=== PATIENT | female | born 1955 | race Caucasian/White ===

== ENCOUNTER 2023-05-16 13:43 | Outpatient (RCR) | payer MEDICARE, SELFPAY ==
--- NOTE | 2023-01-17 14:46 | ONC.NURNOTE ---
llabs viewed by Dr. Meeks and called to pt. Pt aware to continue Hydrea as she has been taking it. 500mg sun thru sat. 1000mg sundays.
--- NOTE | 2023-09-03 14:46 | ONC.NURNOTE ---
Lab results reviewed as stable in regards to hydrea dosing missing CMP- BMP done instead, and no [facility] radio news writer noted with patient- and informed that will sending a copy of lab tests needed to her as [place] [facility] [place] expressed frustration with communication issues between the 2 facilities patient saw lab results [place] [facility] [place] and confirmed current dosing 500 mg 6 d/wk and 1000 mg 1 d/wk reports no concerns with hydrea
--- NOTE | 2023-09-13 13:49 | ONC.NURNOTE ---
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
--- NOTE | 2023-09-27 12:01 | ONC.NURNOTE ---
lab redraw [place] [facility] [place]LDH noted to be stable with the patients baseline
== END 2023-11-12 23:59 | disposition home or self-care (01) ==
LOC: CCIC 13:43
PROVIDERS: PCP Surgery; Referring Provider Surgery; Visit Provider Internal Medicine Hematology & Oncology
DX: D47.3 Essential (hemorrhagic) thrombocythemia (principal); R53.83 Other fatigue; E03.9 Hypothyroidism, unspecified; E61.1 Iron deficiency
CPT/HCPCS: 80053; 83615; 85025; 99212; 99213; 99214

== ENCOUNTER 2024-07-15 00:41 | Emergency (ER) | payer MEDICARE, SELFPAY ==
--- OUTSIDE RECORDS SUMMARY | 2024-07-15 00:43 | XMS_ITS | Clinical Summary ---
Author Organization [facility] Address [place], [place] [address] Care Team Providers Care Defence Intelligence Analyst Name Role Phone Jessee Mcadams MD Primary Care Provider [phone] Beatrice Jamison MD Unavailable [phone] Shoshana Solorio GLUER Unavailable Allergies No known active allergies Medications aspirin 81 mg tablet Take 1 tablet by mouth once daily with a meal. 0 08/21/19 10 Active levothyroxine (SYNTHROID) 88 mcg tabletIndications :Hypothyroidism (acquired) Take 1 Tablet (88 mcg) by mouth before breakfast. 100 Tablet 3 08/28/19 24 Active atorvastatin (LIPITOR) 20 mg tabletIndications :Hyperlipidemia, unspecified hyperlipidemia type Take 1 Tablet (20 mg) by mouth at bedtime. 100 Tablet 3 08/28/19 24 Active hydroxyurea (HYDREA) 500 mg capsuleIndication s:Essential thrombocytosis (HC) Take 1 Capsule (500 mg) by mouth once daily. 2 tabs on Sunday and 1 tab per day the rest of the week (Sunday - Sunday) 32 Capsule 11 12/25/19 24 Active tretinoin (RETIN-A) 0.025 % creamIndications: Solar elastosis,Actinic keratosis APPLY TOPICALLY TO THE AFFECTED AREA AT BEDTIME 45 g 04/02/20 24 Active estriol, E3, micronized 100% bulk powderIndications :Atrophic vaginitis 3 mg/g cream. Apply 1 g vaginally twice weekly. 30 g 11 06/17/19 25 Active Estriol Micronized 100 % powdIndications:A trophic vaginitis 3 mg/g cream. Apply 1 g vaginally twice weekly. 30 g 11 04/03/20 23 025 Discontinued Hospital, Clinic, or Other Facility Administered Medication Ordered Dose Route Frequency Start Date End Date Status denosumab (PROLIA) injection 60 mgIndications:Osteoporosis , unspecified osteoporosis type, unspecified pathological fracture presence 60 mg SubQ Q 26 WEEKS 03/13/2024 03/12/2025 Active Active Problems Problem Noted Date Diagnosed Date Hypothyroidism (acquired) 07/04/2022 Nonrheumatic tricuspid valve regurgitation 07/08 Overview (07/04/2021): Mild to moderate; Identified on echo 06/2020 - recheck 2022 Skin cancer 11/04/2019 Cancer Staging:Clinical: Unsigned Pathologic: Unsigned Overview (07/04/2021): 10/30/19, left bridge of nose. nBCC; [facility] Other osteoporosis without current pathological fracture 12/06/2018 Overview (12/06/2018): T score -2.5; Elected to wait on bisphosphonate 11/2018 Diverticulosis of large intestine without hemorr kamlesh 07/13/2015 Overview (07/13/2015): Colonoscopy 07/2015 moderate -severe diverticulosis, chose other colon cancer screening modality in 10 years Adhesive capsulitis of shoulder 03/24/2010 Essential thrombocytosis 03/03/2008 Chronic kidney disease, stage III (moderate) 05/2008 Vascular disorders of kidney Resolved Problems Problem Noted Date Diagnosed Date Resolved Date Osteopenia 02/08/2009 12/06/2018 Other abnormal blood chemistry 03/20/2008 02/08/2009 Iron deficiency anemia, unspecified 12/23/2007 03/03/2008 Unspecified diseases of bloo d and blood-forming organs 12/19/2007 03/09/2011 Other disorders of iron metabolism 11/24/2007 02/08/2009 Overview (03/11/2010): Inactive ICD-9 code replaced with correct active ICD-9. Display name retained. Adjustment disorder with mix ed anxiety and depressed mood 06/20/2007 03/10/2011 Unspecified essential hypertension 12/27/2012 Unspecified disorder of kidney and ureter 03/03/2008 Encounters Date Type Department Care Team Description 07/08/2024 Telephone [facility] [address] [facility] [address] Shoshana Solorio, GLUER Appointment 06/30/2024 11:15 AM COMPLIANCE PROFESSIONAL Office Visit [facility] [address] [facility] [place] [phone] Shoshana Solorio, GLUER Follow Up (Essential thrombocytosis ) 06/30/2024 Travel 06/25/2024 10:15 AM COMPLIANCE PROFESSIONAL Orders Only [facility] [place] [address] [place] [address] [place] [facility] 06/25/2024 Travel 06/24/2024 Orders Only [facility] [address] [facility] [phone] Beatrice Jamison MD <No scans attached> 06/20/2024 Travel 06/12/2024 Refill [facility] [address] [facility] [address] Jessee Mcadams MD Refill Request (estriol) 05/05/2024 2:00 PM COMPLIANCE PROFESSIONAL Orders Only [facility] [place] [address] [address] [place], [place] [facility] 05/05/2024 Orders Only [facility] Scanner 1 scan: (1-Ord) [facility], FECAL LEUKOCYTE STAIN RESULT, 05/05/2024 05/02/2024 11:30 AM COMPLIANCE PROFESSIONAL Orders Only [facility] [place] [address] [address] [place], [place] [facility] 05/02/2024 Telephone [facility] [place] [address] [address] [address] Olivia Cross, DO Follow Up 05/01/2024 12:45 PM COMPLIANCE PROFESSIONAL Orders Only [facility] [place] [address] [address] Lab, [place] [facility] 05/01/2024 Orders Only [facility] Scanner 1 scan: (1-Ord) [facility], FECAL LEUKOCYTE STAIN, 05/01/2024 05/01/2024 Travel 04/30/2024 3:25 PM COMPLIANCE PROFESSIONAL Office Visit [facility] [address] [place] [address] Olivia Cross Daisy, DO Diarrhea (x16 days - multiple episodes per day ) 04/29/2024 Travel 04/26/2024 2:55 PM COMPLIANCE PROFESSIONAL E-Visit [facility] [address] [place] [address] Jessee Mcadams MD eVisit for Diarrhea 04/26/2024 Nurse Triage [facility] [address] [place] [address] Jessee Mcadams MD Diarrhea from Last 3 Months Immunizations Name Administration Dates Next Due AMB INFLUENZA, IIV4 (AGE=>6M OS) MDV (Flu Clinic Only) 03/11/2018 AMB Influenza, IIV3 (Age >=3 years)(Flu Clinic Only) 03/19/2009 AMB Influenza, IIV4 PF (=>6 mos Flulaval,Fluzone Fluarix)(Flu Clinic Only) 04/07/2017,04/07/2016,03/26/2015 Hepatitis A (Adult) 09/30/2009,02/08/2009 Influenza A (H1N1), Inactivated 06/18/2009 Influenza A (H1N1), Inactiva gm (Age >=3 Years) 06/18/2009 Influenza, High-dose Quadriv alent Inactivated 05/24/2022 Influenza, IIV3 (Age 6-35 mos) 03/10/2011,2010 Influenza, IIV3 (Age >=3 years) 03/27/20 13,03/10/2011,07/22/2010,2008,03/13/2008,06/10/2007,07/26/2006 Influenza, IIV4 04/07/2016,03/26/2015,03/18/2014 Influenza, IIV4 (=>6mos) MDV 03/12/2018 Influenza, Inactivated AIIV4 (Age 65+ Years) Preserv Free 02/28/2023,04/13/2021,03/11/2020 Influenza, Inactivated IIV3 (Age 65+ Years) Preserv Free 03/12/2019 Pneumococcal Conj 20-valent (Prevnar 20) 07/04/2022 Pneumococcal Poly,23-Valent (Pneumovax) 07/04/2019 Td (Age >=7 Years) 07/04/2019,10/20/1999 Tdap 08/20/2009 Zoster (Shingrix-RZV, recombinant) 11/14/2019, Zoster (Zostavax-ZVL, live) 03/18/2014 Family History Medical History Relation Name Comments Heart Disease Father [place] at age 80; then Cancer-breast Maternal Aunt did well, pos t menopausal Good Health Mother born 1921 Cancer Other no ovarian canc er Cancer-breast Sister age 60--resect ed Cancer-ovarian No Family History Relation Name Status Comments Father Maternal Aunt Mother Other Sister Social History Tobacco Use Types Packs/Day Years Used Date Smoking Tobacco: Former Cigarettes 1 5 0 06/11/1991 - 06/11/1996 Smokeless Tobacco: Never Tobacco Cessation:Counseling Given: Not Answered Alcohol Use Standard Drinks/Week Comments Yes 2 (1 standard drink = 0.6 oz pur e alcohol) PHQ-2 Answer Date Recorded PHQ-2 TOTAL SCORE 2 08/28/2023 Social Connections Answer Date Recorded Do you often feel lonely or isolated from those around you? 0 04/29/2024 Alcohol Use Answer Date Recorded How often do you have a drink containing alcohol ? 4 01/12/2022 How many drinks containing a lcohol do you have on a typical day when you are drinking? 0 01/12/2022 How often do you have five or more drinks on one occasion? 0 01/12/2022 Financial Resource Strain Answer Date R ecorded Difficulty of Paying Living Expenses 3 04/29/2024 Difficulty of Paying Living Expenses Not on file 04/29/2024 Food Insecurity Answer Date Recorded Do you worry your food will run out before you are able to buy more? 1 04/29/2024 Transportation Needs Answer Date Record ed Does lack of transportation keep you from medica l appointments? 1 04/29/2024 Does lack of transportation keep you from work, meetings or getting things that you need? 1 04/29/2024 Housing Stability Answer Date Recorded What is your housing situation today? 1 04/29/2024 Utilities Answer Date Recorded Do you have trouble paying f or utilities (for example, heat, electricity, water, phone)? 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 Not on file Not on file Obstetrics History Para Term AB IAB SAB Ectopic Multiple Livin g Live Births 1 06 11 Date Outcome GA Total Labor Labor/2nd/3rd Weight Sex Type Anes PTL Daisy A1 A5 Name Clin Term Last Filed Vital Signs Vital Sign Reading Time Taken Comments Blood Pressure 136/88 06/30/2024 11:15 AM COMPLIANCE PROFESSIONAL ma nual Pulse 65 06/30/2024 11:09 AM COMPLIANCE PROFESSIONAL Temperature 36.3 C (97.4 F) 06/30/2024 11:09 AM COMPLIANCE PROFESSIONAL Respiratory Rate 18 06/30/2024 11:09 AM COMPLIANCE PROFESSIONAL Oxygen Saturation 98% 06/30/2024 11:09 AM COMPLIANCE PROFESSIONAL Inhaled Oxygen Concentration - - Weight 62.8 kg (138 lb 6.4 oz) 06/30/2024 11:09 AM COMPLIANCE PROFESSIONAL Height 164 cm (5' 4.57) 08/28/2023 2:10 PM CDT Body Mass Index 23.34 08/28/2023 2:10 PM CDT Plan of Treatment Upcoming Encounters Date Type Department Care Team (Late st Contact Info) Description 07/15/2024 8:45 AM COMPLIANCE PROFESSIONAL Office Visit [facility] [address] [place] [address] Justus Estrada MD [address] [place] [address] 08/29/2024 1:10 PM CDT Office Visit [facility] [address] [place] [address] Jessee Mcadams MD [address] [place] [address] Health Maintenance Due Date Last Done Comments RSV vaccine for adults or (1 - Risk 60-74 years 1-dose series) 2013 Influenza for age 65+ 02/10/2024 02/28/2023 , 05/24/2022, 04/13/2021, Additional history exists COVID-19 vaccine series (2023- season) 2024 05/12/2024, 07/02/2023, 01/11/2023, Additional history exists Mammogram for age 45-75 08/08/2024 08/09/19, 08/07/2022, 07/20/2021, Additional history exists BMI (ht and wt on same day) for age 18+ 08/27/2024 08/28/2023, 07/04/2022, 07/04/2021, Additional history exists Depression screening for age 12+ 08/27/2024 08/28/2023, 07/04/2022, 07/04/2021, Additional history exists Medicare Wellness for age 65+ 08/28/2024, 07/04/2022, 07/04/2021 Colonoscopy through age 75 07/13/202507/13, 07/13/2015, 01/09/2005 Lipids for age 45-75 08/27/2028 08/28/2023, 07/04/2022, 08/18/2020, Additional history exists Tetanus booster 07/04/2029 07/04/2019, 08/09, 10/20/1999 Tdap Completed 08/20/2009 Hepatitis C screening for ag e 18-79 Completed 05/21/2015 Zoster (shingles) series for age 50+ Completed 11/14/2019, 07/04/2019, 03/18/2014 Pneumococcal series for age 50+ Completed , 07/04/2019 DEXA/DXA scan for age 65+ Completed 2022, 07/19/2020, 11/19/2018, Additional history exists Procedures Procedure Name Priority Date/Time Associated Diagnosis Comments COMP METABOLIC PANEL Routine 06/25/2024 10:13 AM COMPLIANCE PROFESSIONAL Essential thrombocytosis (HC) CBC WITH AUTO DIFFERENTIAL Routine 06/25/2024 10:13 AM COMPLIANCE PROFESSIONAL Essential thrombocytosis (HC) SCAN-PATHOLOGY REPORT 05/05/2024 12:00 AM COMPLIANCE PROFESSIONAL OVA + PARASITE EXAM Routine 05/02/2024 7 :30 AM COMPLIANCE PROFESSIONAL Acute diarrhea OVA + PARASITE EXAM Routine 05/01/2024 1 1:34 AM COMPLIANCE PROFESSIONAL Acute diarrhea STOOL PATHOGEN MULTIPLEX PCR PANEL Routine 05/01/2024 11:22 AM COMPLIANCE PROFESSIONAL Acute diarrhea CLOSTRIDIOIDES DIFFICILE TOXIN PCR Routine 05/01/2024 11:22 AM COMPLIANCE PROFESSIONAL Acute diarrhea CRYPTOSPORIDIUM GIARDIA RAPID ANTIGEN Routine 05/01/2024 11:22 AM COMPLIANCE PROFESSIONAL Acute diarrhea SCAN-PATHOLOGY REPORT 05/01/2024 12:00 AM COMPLIANCE PROFESSIONAL ELECTROLYTE PANEL Routine 04/30/2024 4:0 2 PM COMPLIANCE PROFESSIONAL Acute diarrhea CREATININE Routine 04/30/2024 4:02 PM COMPLIANCE PROFESSIONAL Acute diarrhea LIPID PANEL Routine 08/28/2023 3:10 PM CDT Hyperlipidemia, unspecified hyperlipidemia type XR MAMMO TERE BILAT SCREEN Routine 08/09/2023 9:38 AM COMPLIANCE PROFESSIONAL Encounter for screening mammogram for malignant neoplasm of breast XR DXA BONE DENSITY 2 SITES AXIAL Routine 08/07/2022 1:32 PM COMPLIANCE PROFESSIONAL Osteoporosis, unspecified osteoporosis type, unspecified pathological fracture presence ANTI HCV Routine 05/21/2015 10:03 AM COMPLIANCE PROFESSIONAL Need for hepatitis C screening test from Last 3 Months or Most Recently Relevant to Health Maintenance Results * (ABNORMAL) CBC AND DIFFERENTIAL (06/25/2024 10:13 AM COMPLIANCE PROFESSIONAL) WHITE BLOOD CELL COUNT 6.7 3.8 - 10.8 Thousand/u L [facility] RED BLOOD CELL COUNT 3.74(L) 3.80 - 5.10 Million/uL [facility] HEMOGLOBIN 13.8 11.7 - 15.5 g/dL [facility] HEMATOCRIT 41.2 35.0 - 45.0 % [facility] MCV 110.2(H) 80.0 - 100.0 fL [facility] MCH 36.9(H) 27.0 - 33.0 pg [facility] MCHC 33.5 32.0 - 36.0 g/dL [facility] Comment: For adults, a slight decrease in the calculated MCHC value (in the range of 30 to 32 g/dL) is most likely not clinically significant; however, it should be interpreted with caution in correlation with other red cell parameters and the patient's clinical condition. RDW 13.8 11.0 - 15.0 % [facility] PLATELET COUNT 310 140 - 400 Thousand/u L [facility] MPV 10.7 7.5 - 12.5 fL [facility] ABSOLUTE NEUTROPHILS 4,777 1,500 - 7,800 cells/uL [facility] ABSOLUTE LYMPHOCYTES 1,387 850 - 3,900 cells/uL [facility] ABSOLUTE MONOCYTES 402 200 - 950 cells/uL [facility] ABSOLUTE EOSINOPHILS 87 15 - 500 cells/uL [facility] ABSOLUTE BASOPHILS 47 0 - 200 cells/uL [facility] NEUTROPHILS 71.3 % [facility] LYMPHOCYTES 20.7 % [facility] MONOCYTES 6.0 % [facility] EOSINOPHILS 1.3 % [facility] BASOPHILS 0.7 % [facility] Blood BLOOD SPECIMEN / Unknown 06/25/2024 10:13 AM COMPLIANCE PROFESSIONAL 06/25/2024 10:14 AM COMPLIANCE PROFESSIONAL us Beatrice Jamison MD HEMATOLOGY Final Resu lt [employer] [facility] [address] [place] [address], [facility] [address] [place] [address] * (ABNORMAL) COMP METABOLIC PANEL (06/25/2024 10:13 AM COMPLIANCE PROFESSIONAL) [facility] GLUCOSE 77 65 - 99 mg/dL [facility] Comment: Fasting reference interval UREA NITROGEN (BUN) 28(H) 7 - 25 mg/dL [facility] CREATININE 1.29(H) 0.60 - 1.00 mg/dL [facility] EGFR 44(L) > OR = 60 mL/min/1.7 3m2 [facility] BUN/CREATININE RATIO 22 6 - 22 (calc) [facility] SODIUM 139 135 - 146 mmol/L [facility] POTASSIUM 4.9 3.5 - 5.3 mmol/L [facility] CHLORIDE 105 98 - 110 mmol/L [facility] CARBON DIOXIDE 27 20 - 32 mmol/L [facility] CALCIUM 9.6 8.6 - 10.4 mg/dL [facility] PROTEIN, TOTAL 6.8 6.1 - 8.1 g/dL [facility] ALBUMIN 4.3 3.6 - 5.1 g/dL [facility] GLOBULIN 2.5 1.9 - 3.7 g/dL (calc) [facility] ALBUMIN/GLOBULIN RATIO 1.7 1.0 - 2.5 (calc) [facility] BILIRUBIN, TOTAL 0.4 0.2 - 1.2 mg/dL [facility] ALKALINE PHOSPHATASE 37 37 - 153 U/L [facility] AST 26 10 - 35 U/L [facility] ALT 29 6 - 29 U/L [facility] Blood BLOOD SPECIMEN / Unknown 06/25/2024 10:13 AM COMPLIANCE PROFESSIONAL 06/25/2024 10:14 AM COMPLIANCE PROFESSIONAL Beatrice Jamison MD CHEMISTRY Final Resu lt [employer] [facility] [address] [facility] [address], [place] [phone] [facility] [address] [place] [address] * SCAN-PATHOLOGY REPORT (05/05/2024 12:00 AM COMPLIANCE PROFESSIONAL) Only the most recent of2 resultswithin the time period is included. Scanner OTHER Final Result * (ABNORMAL) OVA + PARASITE EXAM (05/02/2024 7:30 AM COMPLIANCE PROFESSIONAL) Only the most recent of2 resultswithin the time period is included. OVA AND PARASITES, CONC AND PERM SMEAR SEE NOTE(A) [facility] Comment: OVA AND PARASITES, CONC AND PERM SMEAR Micro Number: [id number] Test Status: Final Specimen Source: Stool Specimen Quality: Adequate CONCENTRATION 1: Blastocystis species TRICHROME 1: Few Blastocystis species Result: It is controversial whether identification of Blastocystis in the stool requires treatment. In a symptomatic patient, isolation of cysts in stool specimens should trigger a thorough evaluation for other causes of the patient's gastrointestinal tract complaints, given the possibility for co-infection with other pathogens. Routine Ova and Parasite exam may not detect some parasites that occasionally cause diarrheal illness. Cryptosporidium Antigen and/or Cyclospora and Isospora Exam may be ordered to detect these parasites. One negative sample does not necessarily rule out the presence of a parasitic infection. For additional information, please refer to https://education.[employer].[facility]/faq/ODI185 (This link is being provided for informational/ educational purposes only.) Stool STOOL SPECIMEN / Unknown 05/02/2024 7:30 AM COMPLIANCE PROFESSIONAL 05/02/2024 10:04 AM COMPLIANCE PROFESSIONAL Olivia Cross DO SEND OUTS Final Result [employer] [facility] [address] [place] [address], [facility] [address] [place] [address] * CRYPTOSPORIDIUM GIARDIA RAPID ANTIGEN (05/01/2024 11:22 AM COMPLIANCE PROFESSIONAL) [facility] GIARDIA AND CRYPTOSPORIDIUM ANTIGEN PANEL SEE NOTE [facility] Comment: CRYPTOSPORIDIUM ANTIGEN, EIA Micro Number: [id number] Test Status: Final Specimen Source: Stool Specimen Quality: Adequate Cryptosporidium: Not Detected Reference Range: Not Detected NOTE: Due to intermittent shedding, one negative sample does not necessarily rule out the presence of a parasitic infection. GIARDIA AND CRYPTOSPORIDIUM ANTIGEN PANEL SEE NOTE [facility] Comment: GIARDIA AG, EIA, STOOL Micro Number: [id number] Test Status: Final Specimen Source: Stool Specimen Quality: Adequate Giardia Result 1: Not Detected Reference Range: Not Detected NOTE: Due to intermittent shedding, one negative sample does not necessarily rule out the presence of a parasitic infection. Stool STOOL SPECIMEN / Unknown 05/01/2024 11:22 AM COMPLIANCE PROFESSIONAL 05/01/2024 11:24 AM COMPLIANCE PROFESSIONAL Narrative [facility] - 05/06/2024 11:56 AM COMPLIANCE PROFESSIONAL SPLIT 04/30/2024 FROM [id number] Olivia Cross DO MICROBIOLOGY Final Result [employer] [facility] [address] [place] [address], [facility] [address] [place] [address] * STOOL PATHOGEN MULTIPLEX PCR PANEL (05/01/2024 11:22 AM COMPLIANCE PROFESSIONAL) [facility] CAMPYLOBACTER GROUP NOT DETECTED NOT DETECTED [facility] [place] SALMONELLA SPECIES NOT DETECTED NOT DETECTED [facility] [place] SHIGELLA SPECIES NOT DETECTED NOT DETECTED [facility] [place] VIBRIO GROUP NOT DETECTED NOT DETECTED [facility] [place] YERSINIA ENTEROCOLITICA NOT DETECTED NOT DETECTED [facility] SHIGA TOXIN 1 NOT DETECTED NOT DETECTED [facility] [place] SHIGA TOXIN 2 NOT DETECTED NOT DETECTED [facility] NOROVIRUS GI/GII NOT DETECTED NOT DETECTED [facility] ROTAVIRUS A NOT DETECTED NOT DETECTED [facility] Comment: Organisms included in the Campylobacter group include C. coli, C. jejuni, and C. sherri. Organisms included in the Shigella species include S. dysenteriae, S. boydii, S. sonnei, and S. flexneri. Organisms included in the Vibrio group include V. cholerae and V. parahaemolyticus. Stool STOOL SPECIMEN / Unknown 05/01/2024 11:22 AM COMPLIANCE PROFESSIONAL 05/01/2024 11:24 AM COMPLIANCE PROFESSIONAL Narrative [employer] [facility] - 05/02/2024 2:21 PM COMPLIANCE PROFESSIONAL SPLIT 04/30/2024 FROM [id number] Olivia Daisy Tay LORENZO MICROBIOLOGY Final Result Performing Organization Address City/[facility]/ZIP Co de Phone Number [employer] [address] [address], [employer] [address] * CLOSTRIDIUM DIFFICILE TOXIN PCR (05/01/2024 11:22 AM COMPLIANCE PROFESSIONAL) CLOSTRIDIUM DIFFICILE TOXIN/GDH W/REFL TO PCR SEE NOTE [facility] Comment: CLOSTRIDIUM DIFFICILE TOXIN/GDH W/REFL TO PCR Micro Number: [id number] Test Status: Final Specimen Source: Stool Specimen Quality: Adequate GDH Antigen: Not Detected Toxin A and B: Not Detected COMMENT: No toxigenic C. difficile detected For additional information, please refer to http://education.Solution[employer]/faq/AVA348 (This link is being provided for informational/educational purposes only.) Stool STOOL SPECIMEN / Unknown 05/01/2024 11:22 AM COMPLIANCE PROFESSIONAL 05/01/2024 11:24 AM COMPLIANCE PROFESSIONAL Narrative [employer] - 05/02/2024 2:53 PM COMPLIANCE PROFESSIONAL SPLIT 04/30/2024 FROM [id number] [employer] Tay LORENZO MICROBIOLOGY Final Result [employer] [facility] [address] [place] [address], [facility] [address] [place] [address] * (ABNORMAL) CREATININE (04/30/2024 4:02 PM COMPLIANCE PROFESSIONAL) CREATININE 1.93(H) 0.60 - 1.00 mg/dL [facility] EGFR 28(L) > OR = 60 mL/min/1.73 m2 [facility] Blood BLOOD SPECIMEN / Unknown 04/30/2024 4:02 PM COMPLIANCE PROFESSIONAL 04/30/2024 4:03 PM COMPLIANCE PROFESSIONAL Narrative [facility] - 05/01/2024 5:51 AM COMPLIANCE PROFESSIONAL PATIENT UNABLE TO VOID; ADVISED TO RETURN FOR COLLECTION. [employer] CHEMISTRY Final Result Performing Organization Address City/State/[facility] Co de Phone Number [employer] [address] [address], [facility] [address] [place] [address] * (ABNORMAL) ELECTROLYTE PANEL (04/30/2024 4:02 PM COMPLIANCE PROFESSIONAL) SODIUM 139 135 - 146 mmol/L [facility] POTASSIUM 4.3 3.5 - 5.3 mmol/L [facility] CHLORIDE 106 98 - 110 mmol/L [facility] CARBON DIOXIDE 28 20 - 32 mmol/L [facility] ELECTROLYTE BALANCE 5(L) 7 - 17 mmol/L (calc) [facility] Blood BLOOD SPECIMEN / Unknown 04/30/2024 4:02 PM COMPLIANCE PROFESSIONAL 04/30/2024 4:03 PM COMPLIANCE PROFESSIONAL Narrative [facility] - 05/01/2024 5:51 AM COMPLIANCE PROFESSIONAL PATIENT UNABLE TO VOID; ADVISED TO RETURN FOR COLLECTION. 10-20 [employer] DO CHEMISTRY Final Result Performing Organization Address City/State/[facility] Co de Phone Number [employer] [facility] [address] [place] [address], [facility] [address] [place] [address] * LIPID PANEL (08/28/2023 3:10 PM CDT) [facility] CHOLESTEROL,TOTAL 124 100 - 199 mg/dL 08/28/2023 9:30 PM CDT [facility] Comment: Cholesterol, Total Reference Ranges Desirable <200 mg/dL Borderline 200-239 mg/dL High >=240 mg/dL TRIGLYCERIDES 85 <150 mg/dL 08/28/2023 9:30 PM CDT [facility] HDL CHOLESTEROL 44 >40 mg/dL 9:30 PM CDT [facility] NON-HDL CHOLESTEROL 80 <145 mg/dl 08/28/2023 9:30 PM CDT [facility] CHOL/HDL RATIO 2.82 <4.50 08/28/2023 9:30 PM CDT [facility] LDL CHOLESTEROL 63 <=130 mg/dL 08/28/2023 9:30 PM CDT [facility] VLDL CHOLESTEROL 17 <=30 mg/dL 08/28/2023 9:30 PM CDT [facility] PROVIDER ORDERED STATUS RANDOM 08/28/2023 9:30 PM CDT [facility] Blood BLOOD SPECIMEN / Unknown Venipuncture / Unknown 08/28/2023 3:10 PM CDT 08/28/2023 3:11 PM CDT us Jessee Mcadams MD CHEMISTRY [facility] [address] [place] [address], [place] * XR MAMMO TERE BILAT SCREEN (08/09/2023 9:38 AM COMPLIANCE PROFESSIONAL) Anatomical Region Laterality Modality BREASTS, Breast Left, Breast Right Bilateral Mammography Impressions 08/09/2023 1:24 PM COMPLIANCE PROFESSIONAL There is no radiographic evidence for malignancy. Recommend annual mammograms. MAMMOGRAM ASSESSMENT: ACR 1 Negative PATIENTS: You will also receive a letter with your examination results in an easy to read format. If you have questions about your results, please contact your referring provider. Narrative 08/09/2023 1:24 PM COMPLIANCE PROFESSIONAL For Patients: As a result of the Century Cures Act, medical imaging exams and procedure reports are released immediately into your electronic medical record. You may view this report before your referring provider. If you have questions, please contact your health care provider. XR MAMMO TERE BILAT SCREEN [[id number]] CLINICAL HISTORY: This is an asymptomatic 68 y.o. patient. INDICATION FOR EXAM: Mammogram Screening. TECHNIQUE: CC & MLO views were obtained. This study was evaluated with the assistance of Computer-Aided Detection. Breast Tomosynthesis was used in interpretation. COMPARISON FILM: Yes 08/07/22 [facility] 07/20/21 [facility] FINDINGS: The breasts have scattered areas of fibroglandular density. There are no dominant masses, suspicious micro calcifications or areas of architectural distortion. us Jessee Mcadams MD MAMMO Final Resu lt * (ABNORMAL) XR DXA BONE DENSITY 2 SITES AXIAL (08/07/2022 1:32 PM COMPLIANCE PROFESSIONAL) Anatomical Region Laterality Modality Spine, HIPS, HIPL, HIPR Other Impressions 08/14/2022 7:58 AM COMPLIANCE PROFESSIONAL Osteoporosis. RECOMMENDATIONS: The National Osteoporosis Foundation recommends pharmacologic treatment for patients with T-scores of -2.5 or less, patients with prior history of fragility fractures, or patients with 10-year probability of greater than 3% at hips or greater than 20% of suffering major osteoporotic fractures. Recommend continued optimization of calcium and vitamin D intake through dietary means and/or supplementation and regular exercise. Consider pharmacologic therapy for osteoporosis. Follow-up bone density reading in 2 years if therapy initiated to assess therapeutic efficacy. Sonia Palma PA-C [facility] 08/14/2022 Narrative 08/14/2022 7:58 AM COMPLIANCE PROFESSIONAL For Patients: Results are automatically released to your [facility] ([employer]) account once available, in compliance with federal regulations. This means that you may see your results before your provider has had a chance to review them. Please allow 2-3 business days for your provider to comment on the results. XR DXA Bone Mineral Density (BMD) EXAM LOCATION: [facility] [address] [address] PATIENT NAME: Galina Charles DATE OF : 1955 EXAM DATE: 08/07/2022 REQUESTING PROVIDER: Jessee Mcadams MD GENDER AT : female HEIGHT: 5' 5.2 (07/04/2022) WEIGHT: 141 lb 9.6 oz (07/04/2022) MENOPAUSAL STATUS: Postmenopausal RACE/ETHNICITY: Patient Declined RISK FACTORS: Smoking (prior) and White Race CURRENT MEDICATION FOR BONE LOSS: NONE INDICATION: Follow-up of existing osteoporosis COMPARISON DATE(S): 2020 DXA scans are compared to prior studies for a patient only when the two (or more) studies were performed on the same scanner. It is not possible to compare data generated on one scanner to data from another because there are not standards in DXA equipment. This applies even if the two scanners are made by the same inspector watch assembly. PROCEDURE: Dual-energy x-ray absorptiometry performed with routine technique. Reporting is completed in the form of a T-score. The T-score represents the standard deviation from peak bone mass based on young healthy adult. A Z-score is used for diagnosis in premenopausal women, and for men under the age of 50. FINDINGS: RESULT LUMBAR SPINE L1 - L4 BMD: 0.865 g/cm2 T-Score: - 2.6 Z-Score: - 0.9 Change from prior in 2020: Decrease 1.9%. RESULTS FEMUR Left femoral neck BMD: 0.776 g/cm2 T-Score: - 1.9 Z-Score: - 0.2 Change from prior in 2020: Decrease 4.4%. Right femoral neck BMD: 0.764 g/cm2 T-Score: - 2.0 Z-Score: - 0.3 Change from prior in 2020: Decrease 3.2%. Left hip BMD: 0.698 g/cm2 T-Score: - 2.5 Z-Score: - 1.0 Change from prior in 2020: Decrease 2.6%. Right hip BMD: 0.719 g/cm2 T-Score: - 2.3 Z-Score: - 0.9 Change from prior in 2020: Decrease 1.2%. WHO criteria: Normal: T-score at or above -1 SD Osteopenia: T-score between -1.1 and -2.4 SD Osteoporosis: T-score at or below -2.5 SD FRAX RISK CALCULATION (USED FOR OSTEOPENIA ONLY): 10-year probability of major osteoporotic fracture: 11.3%. 10-year probability of hip fracture: 2.1%. Jessee Mcadams MD DEXA Final Resu lt * ANTI HCV [[id number]] (05/21/2015 10:03 AM COMPLIANCE PROFESSIONAL) HEPATITIS C ANTIBODY Non-Reacti ve Non-Reacti ve 05/21/2015 5:07 PM COMPLIANCE PROFESSIONAL [facility] Blood specimen (specimen) BLOOD SPECIMEN / Unknown Venipuncture / Unknown 05/21/2015 10:03 AM COMPLIANCE PROFESSIONAL 05/21/2015 10:03 AM COMPLIANCE PROFESSIONAL Narrative [facility] - 05/21/2015 5:07 PM COMPLIANCE PROFESSIONAL Antibodies to HCV not detected; does not exclude the possibility of exposure to HCV. Jessee Mcadams MD SEND OUTS Final Resu lt [facility] [address] [place] [address], from Last 3 Months or Most Recently Relevant to Health Maintenance Insurance [facility] MR/MSHO MEDICARE PART A HB ONLY Care Teams Defence Intelligence Analyst Relationship Specialty Start Date End Date Jessee Mcadams MD [address] [place] [address] PCP - General Family Practice 06/12/13 Beatrice Jamison MD [address] [place] [address] Medical Oncologist Hematology and Oncology 12/20/23 Shoshana Solorio NP [address] [place] [address] Nurse Practitioner Hematology and Oncology 12/20/23
--- NOTE | 2024-07-15 00:45 | CRLHL7_ITS ---
For Patients: As a result of the Century Cures Act, medical imaging exams and procedure reports are released immediately into your electronic medical record. You may view this report before your referring provider. If you have questions, please contact your health care provider. Indication: Fall, landing on left wrist. Technique: Left wrist 3 views. Comparison: None. Findings: Bones: Alignment is normal. No fractures or bone lesions. Joint spaces: Moderate to advanced osteoarthritis of the 1st carpometacarpal joint. Soft tissues: Soft tissue swelling about the dorsal wrist. Impression: Soft tissue swelling about the dorsal wrist. No fracture identified. If there is pain at the anatomic snuffbox, recommend conservative management with reimaging in 7-10 days. Dictated by Dominic Pozo MD @ 07/15/2024 1:02:24 AM (Electronically Signed)
[2024-07-15 00:47] VITALS: BP 199/108; PULSE 69; RESP 16; TEMP 36.6; O2SAT 98; BMI 22.5
--- NOTE | 2024-07-15 01:12 | ED.GENADULT ---
HPI - General Adult General Chief complaint: Extremity Pain/Injury, Upper Stated complaint: fell on L wrist Time Seen by Provider: 07/15/24 01:11 Source: patient Mode of arrival: ambulatory Limitations: no limitations History of Present Illness HPI narrative: 69-year-old female with fall on outstretched hand at about 4:00 p.m. which is about 6 hours prior to arrival. No loss of consciousness, no head injury. No other areas affected. She tried taking some Tylenol for left wrist pain with incomplete results. Pain is located at the distal ulnar and styloid process area dorsal side. She has pain when moving the fingers but can do so. Worse with movement. No numbness or tingling in the fingers. No difficulty moving the thumb. No other affected areas of the body. Mechanical type fall, no chest pain, breathing difficulties or medical factors contributing to fall. Does have a history of only 1 kidney and is therefore not recommended to use NSAIDs. Otherwise has a history of hypothyroidism, reports medications are accurate as listed. No known drug allergies. ROS is notable for the musculoskeletal symptoms as above only, otherwise denies any other neurological, skin, musculoskeletal or general changes. Related Data Home Medications ?Medication ?Instructions ?Recorded ?Confirmed acetaminophen 500 mg tablet 500 mg PO Q6H PRN 05/17/22 05/16/23 (Tylenol Extra Strength) tretinoin 0.025 % topical cream g topical 05/17/22 05/16/23 ferrous sulfate 325 mg (65 mg 325 mg PO DAILY 07/14/22 05/16/23 iron) tablet atorvastatin 20 mg tablet 20 mg PO DAILY 05/16/23 05/16/23 levothyroxine 75 mcg tablet 88 mcg PO QDAY 05/16/23 05/16/23 Previous Rx's ?Medication ?Instructions ?Recorded hydroxyurea 500 mg capsule (Hydrea) 500 mg PO .COMPLEX #120 caps 09/13/23 Allergies Allergy/AdvReac Type Severity Reaction Status Date / Time No Known Drug Allergies Allergy Verified 05/16/23 13:54 [facility] Social History Smoking Status: Former smoker Non-prescribed substance use: denies use Exam Const: Vital Signs, click to edit/add: Vital Signs - 24 hr 07/15/24 00:47 07/15/24 01:33 07/15/24 01:34 Temperature 97.9 F 97.9 F 97.9 F Pulse Rate [Pulse Oximeter] 69 74 74 Respiratory Rate 16 16 16 Blood Pressure [Ri ght Upper Arm] 199/108 H 175/89 H 175/89 H Pulse Oximetry 98 98 Oxygen Delivery Me thod Room Air Room Air Documenting provider has reviewed patient's vital signs: yes Common normals: no apparent distress and alert General appearance: cooperative, comfortable and well kempt Other: No signs of intoxication or trauma HENMT: Common normals: normocephalic and dentition normal Head and scalp: normocephalic Face and sinus: normal facial exam Eye: Common normals: EOMs intact bilaterally General eye: normal appearance of both eyes Neck & C-Spine: Common normals: no meningeal signs General: normal visual inspection Resp: Common normals: normal respiratory effort Effort & inspection: able to speak in complete sentences Extremity: Other: Both wrists and hands examined. Right wrist with normal range of motion, normal call center assistant strength, normal movement of the fingers. Does have significant osteoarthritis changes but no swelling or major deformity. The left side which is the symptomatic side is examined. There is a 3 cm x 2 cm area of bruising in the area consistent with pain and some mild soft tissue swelling. She has normal radial pulses and normal capillary refill in all the fingers. She has normal call center assistant strength in the thumb and index finger area but really resists movement of the 5th digit and ulnar side in general. Passive range of motion appears normal but she is very hesitant to perform any active range of motion for me today. Pulses and sensation seem intact. Normal abduction and adduction of fingers but she declines to participate in flexion and extension finger exams Neuro: Sensorium/orientation: alert Meningeal signs: no meningeal signs Speech: speech normal Gait (neuro): normal gait Motor exam: no tremor noted Psych: Appearance: well kempt Attitude: engaged Insight: insight good Judgement: judgment good Skin: Narrative: Other than this all area of bruising on the left distal wrist, no other signs of lacerations or injury. Course Course ED Course: Counseled on findings, x-ray performed. No signs of fracture but she does have a lot of osteoarthritic changes. X-ray shows some soft tissue swelling but no obvious fractures. She does not have any tenderness in the snuffbox or other high risk areas. We discussed Tylenol for pain, recommended a 1000 mg 4 times daily. Discussed ice. I do recommend a brace for the next few days, make take a couple of weeks to heal completely. The little hematoma may cause a little bit of numbness distally but should not impair motor function. We discussed NSAIDs and I would like for her to use these sparingly and a PERC provided her with Toradol which she could take 1 tablet 2 times daily just for the next 3 days to help augment pain. I have also given her a small prescription for Flexeril to use 5-10 mg at bedtime to help her sleep if the pain is bothersome. Is best to remove the brace for range of motion every few hours while awake and avoid wearing the brace overnight. If she is still symptomatic in 2 weeks, I recommend Orthopedic follow-up and more advanced imaging. Written instructions provided, alarm symptoms reviewed. She verbalizes understanding and agreement. Vital Signs Vital signs: Initial Vital Signs Temperature 97.9 F 07/15/24 00:47 Temperature Source Temporal Artery Scan 07/15/24 00:47 Pulse Rate 69 07/15/24 00:47 Respiratory Rate 16 07/15/24 00:47 Blood Pressure 199/108 H 07/15/24 00:47 Blood Pressure Mean 138 H 07/15/24 00:47 Blood Pressure Position Sitting 07/15/24 00:47 Pulse Oximetry 98 07/15/24 00:47 Oxygen Delivery Method Room Air 07/15/24 00:47 Vital Signs Temperature 97.9 F 07/15/24 00:47 Pulse Rate 69 07/15/24 00:47 Respiratory Rate 16 07/15/24 00:47 Blood Pressure 199/108 H 07/15/24 00:47 Pulse Oximetry 98 07/15/24 00:47 Oxygen Delivery Method Room Air 07/15/24 00:47 Temperature 97.9 F 07/15/24 01:34 Pulse Rate 74 07/15/24 01:34 Respiratory Rate 16 07/15/24 01:34 Blood Pressure 175/89 H 07/15/24 01:34 Pulse Oximetry 98 07/15/24 01:33 Oxygen Delivery Method Room Air 07/15/24 01:33 Medical Decision Making Imaging Data X-ray wrist: Attestation: I have reviewed the pertinent imaging results. My impression: soft tissue swelling but no signs of fractures Radiologist's impression: Impression: Soft tissue swelling about the dorsal wrist. No fracture identified. If there is pain at the anatomic snuffbox, recommend conservative management with reimaging in 7-10 days. Dictated by Dominic Pozo MD @ 07/15/2024 1:02:24 AM Discharge Plan Discharge Clinical Impression: Sprain and strain of wrist Patient Disposition: Home, Self-Care Condition: Stable Instructions: Wrist Injury (ED) Additional Instructions: as we discussed, there does not seem to be any sign of fracture based on your x-ray or appearance on exam. You do have some underlying arthritis in your wrist and I am sure that this is compounding the pain. There is slight hematoma right in the area of pain. This will cause irritation on the tendons and also press slightly on the nerves that fever this area. It is safe for you to continue about all of your typical activities but you may notice more pain with movement. We have provided you with a brace. Try use this for a few days to help restrict movement. I would like for you to take it off for a few minutes every few hours to perform [id number] exercises. It is better typically to not sleep in the brace but if you needed for support for the 1st night or 2, this is acceptable. For pain, I would like for you to use Tylenol 1000 mg every 6 hours. We discussed that NSAIDs and ibuprofen can be dangerous for you, especially long-term so we would really like to limit your use. I do think that just for 2-3 days, using Toradol up to 3 times daily with a preference toward trying to only use twice daily which is half of the typical adult dose would be a reasonable solution. I think you will find quite a bit of benefit from this. Please take a dose of this right when you get home. Would also recommend that you use a muscle relaxant to help with sleep at night. Consider just using half of a tablet until you know if it is too strong for you. This is safe with your kidney disease. Unfortunately, orthopedic complaints almost always hurt more at night and this can be frustrating. Symptoms really should improve over the next 2 weeks, if not improving in that time frame, make a follow-up appoint with Your primary care doctor for advanced imaging. Activity Level: Activity as Tolerated Discharge Diet: Regular Prescriptions: No Action atorvastatin 20 mg tablet 20 mg PO DAILY tretinoin 0.025 % cream topical Patient Comments: APPLY TOPICALLY TO THE AFFECTED AREA AT BEDTIME acetaminophen [Tylenol Extra Strength] 500 mg tablet 500 mg PO Q6H PRN levothyroxine 75 mcg tablet 88 mcg PO QDAY ferrous sulfate 325 mg (65 mg iron) tablet 325 mg PO DAILY Patient Comments: started by Dr Mcadams 07/14/22 hydroxyurea [Hydrea] 500 mg capsule 500 mg PO .COMPLEX Qty: 120 2RF Rx Instructions: 500 mg orally; Takes 500mg-Sunday thru Sunday 1000mg Follow Up/Referrals: Jessee Mcadams MD [Primary Care Provider] - Stand Alone Forms: [facility] Info Instructions
--- OUTSIDE RECORDS SUMMARY | 2024-07-15 01:26 | XMS_ITS | Clinical Summary ---
Author Organization [employer] [facility] Address [place], [place] [address] Care Team Providers Care Compensation And Hris Analyst Name Role Phone Jessee Mcadams MD Primary Care Provider [phone] Beatrice Jamison MD Unavailable [phone] Shoshana Solorio COM WRITER Unavailable Allergies No known active allergies Medications [...] left bridge of nose. nBCC; [facility] Other osteoporosis without current pathological fracture 12/06/2018 [...] Type Department Care Team Description 07/08/2024 Telephone [facility] [address] [facility] [place] [address] Shoshana Solorio, COM WRITER Appointment 06/30/2024 11:15 AM ORGANIC CHEMISTRY PROFESSOR Office Visit [facility] [address] [facility] [place] [id number] Shoshana Solorio, COM WRITER Follow Up (Essential thrombocytosis ) 06/30/2024 Travel 06/25/2024 10:15 AM ORGANIC CHEMISTRY PROFESSOR Orders Only [facility] [place] [address] [address] [place], [place] [facility] 06/25/2024 Travel 06/24/2024 Orders Only [facility] Jose M [facility] [place] [id number] Beatrice Jamison MD <No scans attached> 06/20/2024 Travel 06/12/2024 Refill [facility] [address] [facility] [address] Jessee Mcadams MD Refill Request (estriol) 05/05/2024 2:00 PM ORGANIC CHEMISTRY PROFESSOR Orders Only [facility] [place] [address] [place] [facility] 05/05/2024 Orders Only [facility] Scanner 1 scan: (1-Ord) [facility], FECAL LEUKOCYTE STAIN RESULT, 05/05/2024 05/02/2024 11:30 AM ORGANIC CHEMISTRY PROFESSOR Orders Only [facility] [place] [address] [address] Lab, [place] [facility] 05/02/2024 Telephone [facility] [place] [address] [address] Olivia Cross, DO Follow Up 05/01/2024 12:45 PM ORGANIC CHEMISTRY PROFESSOR Orders Only [facility] [place] [address] [address] Lab, [place] [facility] 05/01/2024 Orders Only [facility] Scanner 1 scan: (1-Ord) [facility], FECAL LEUKOCYTE STAIN, 05/01/2024 05/01/2024 Travel 04/30/2024 3:25 PM ORGANIC CHEMISTRY PROFESSOR Office Visit [facility] [address] [place] [address] Olivia Cross Daisy, DO Diarrhea (x16 days - multiple episodes per day ) 04/29/2024 Travel 04/26/2024 2:55 PM ORGANIC CHEMISTRY PROFESSOR E-Visit [facility] [address] [place] [address] Jessee Mcadams MD eVisit for Diarrhea 04/26/2024 Nurse Triage [facility] [address] [place] [address] Jessee Mcadams MD Diarrhea from Last 3 [...] History Relation Name Comments Heart Disease Father [place] at age 80; then Cancer-breast Maternal Aunt [...] on file Legal Sex Female 5:26 AM ORGANIC CHEMISTRY PROFESSOR Gender Identity Not on file Sexual Orientation [...] Comments Blood Pressure 136/88 06/30/2024 11:15 AM ORGANIC CHEMISTRY PROFESSOR ma nual Pulse 65 06/30/2024 11:09 AM ORGANIC CHEMISTRY PROFESSOR Temperature 36.3 C (97.4 F) 06/30/2024 11:09 AM ORGANIC CHEMISTRY PROFESSOR Respiratory Rate 18 06/30/2024 11:09 AM ORGANIC CHEMISTRY PROFESSOR Oxygen Saturation 98% 06/30/2024 11:09 AM ORGANIC CHEMISTRY PROFESSOR Inhaled Oxygen Concentration - - Weight 62.8 kg (138 lb 6.4 oz) 06/30/2024 11:09 AM ORGANIC CHEMISTRY PROFESSOR Height 164 cm (5' 4.57) 08/28/2023 2:10 PM CDT Body Mass Index 23.34 08/28/2023 2:10 PM CDT Plan of Treatment Upcoming Encounters Date Type Department Care Team (Late st Contact Info) Description 07/15/2024 8:45 AM ORGANIC CHEMISTRY PROFESSOR Office Visit [facility] [address] [place] [address] Justus Estrada MD [address] [place] [address] 08/29/2024 1:10 PM CDT Office Visit [facility] [address] [place] [address] Jessee Mcadams MD [address] [place] [address] Health Maintenance Due Date Last Done Comments [...] COMP METABOLIC PANEL Routine 06/25/2024 10:13 AM ORGANIC CHEMISTRY PROFESSOR Essential thrombocytosis (HC) CBC WITH AUTO DIFFERENTIAL Routine 06/25/2024 10:13 AM ORGANIC CHEMISTRY PROFESSOR Essential thrombocytosis (HC) SCAN-PATHOLOGY REPORT 05/05/2024 12:00 AM ORGANIC CHEMISTRY PROFESSOR OVA + PARASITE EXAM Routine 05/02/2024 7 :30 AM ORGANIC CHEMISTRY PROFESSOR Acute diarrhea OVA + PARASITE EXAM Routine 05/01/2024 1 1:34 AM ORGANIC CHEMISTRY PROFESSOR Acute diarrhea STOOL PATHOGEN MULTIPLEX PCR PANEL Routine 05/01/2024 11:22 AM ORGANIC CHEMISTRY PROFESSOR Acute diarrhea CLOSTRIDIOIDES DIFFICILE TOXIN PCR Routine 05/01/2024 11:22 AM ORGANIC CHEMISTRY PROFESSOR Acute diarrhea CRYPTOSPORIDIUM GIARDIA RAPID ANTIGEN Routine 05/01/2024 11:22 AM ORGANIC CHEMISTRY PROFESSOR Acute diarrhea SCAN-PATHOLOGY REPORT 05/01/2024 12:00 AM ORGANIC CHEMISTRY PROFESSOR ELECTROLYTE PANEL Routine 04/30/2024 4:0 2 PM ORGANIC CHEMISTRY PROFESSOR Acute diarrhea CREATININE Routine 04/30/2024 4:02 PM ORGANIC CHEMISTRY PROFESSOR Acute diarrhea LIPID PANEL Routine 08/28/2023 3:10 PM CDT Hyperlipidemia, unspecified hyperlipidemia type XR MAMMO TERE BILAT SCREEN Routine 08/09/2023 9:38 AM ORGANIC CHEMISTRY PROFESSOR Encounter for screening mammogram for malignant neoplasm of breast XR DXA BONE DENSITY 2 SITES AXIAL Routine 08/07/2022 1:32 PM ORGANIC CHEMISTRY PROFESSOR Osteoporosis, unspecified osteoporosis type, unspecified pathological fracture presence ANTI HCV Routine 05/21/2015 10:03 AM ORGANIC CHEMISTRY PROFESSOR Need for hepatitis C screening test from Last 3 Months or Most Recently Relevant to Health Maintenance Results * (ABNORMAL) CBC AND DIFFERENTIAL (06/25/2024 10:13 AM ORGANIC CHEMISTRY PROFESSOR) WHITE BLOOD CELL COUNT 6.7 3.8 - [...] BLOOD SPECIMEN / Unknown 06/25/2024 10:13 AM ORGANIC CHEMISTRY PROFESSOR 06/25/2024 10:14 AM ORGANIC CHEMISTRY PROFESSOR us Beatrice Jamison MD HEMATOLOGY Final Resu lt [employer] [facility] [address] [place] [address], [facility] [address] [place] [address] * (ABNORMAL) COMP METABOLIC PANEL (06/25/2024 10:13 AM ORGANIC CHEMISTRY PROFESSOR) [facility] GLUCOSE 77 65 - 99 mg/dL [facility] Comment: Fasting reference interval UREA [...] BLOOD SPECIMEN / Unknown 06/25/2024 10:13 AM ORGANIC CHEMISTRY PROFESSOR 06/25/2024 10:14 AM ORGANIC CHEMISTRY PROFESSOR Beatrice Jamison MD CHEMISTRY Final Resu lt [employer] [facility] [address] [facility] [address], [place] [phone] [facility] [address] [place] [address] * SCAN-PATHOLOGY REPORT (05/05/2024 12:00 AM ORGANIC CHEMISTRY PROFESSOR) Only the most recent of2 resultswithin the time period is included. Scanner OTHER Final Result * (ABNORMAL) OVA + PARASITE EXAM (05/02/2024 7:30 AM ORGANIC CHEMISTRY PROFESSOR) Only the most recent of2 resultswithin the time period is included. OVA AND PARASITES, CONC AND PERM SMEAR SEE NOTE(A) [facility] Comment: OVA AND PARASITES, CONC AND PERM SMEAR Micro Number: [id number] Test Status: Final Specimen Source: Stool Specimen [...] infection. For additional information, please refer to https://education.Treato.CoaLogix/faq/FLK579 (This link is being provided for informational/ educational purposes only.) Stool STOOL SPECIMEN / Unknown 05/02/2024 7:30 AM ORGANIC CHEMISTRY PROFESSOR 05/02/2024 10:04 AM ORGANIC CHEMISTRY PROFESSOR Olivia Cross DO SEND OUTS Final Result [employer] [facility] [address] [place] [address], [facility] [address] [place] [address] * CRYPTOSPORIDIUM GIARDIA RAPID ANTIGEN (05/01/2024 11:22 AM ORGANIC CHEMISTRY PROFESSOR) [facility] GIARDIA AND CRYPTOSPORIDIUM ANTIGEN PANEL SEE NOTE [facility] Comment: CRYPTOSPORIDIUM ANTIGEN, EIA Micro Number: [id number] Test Status: Final Specimen Source: Stool Specimen Quality: Adequate Cryptosporidium: Not Detected Reference Range: Not Detected NOTE: Due to intermittent shedding, one negative sample does not necessarily rule out the presence of a parasitic infection. GIARDIA AND CRYPTOSPORIDIUM ANTIGEN PANEL SEE NOTE [facility] Comment: GIARDIA AG, EIA, STOOL Micro Number: [id number] Test Status: Final Specimen Source: Stool Specimen Quality: Adequate Giardia Result 1: Not Detected Reference Range: Not Detected NOTE: Due to intermittent shedding, one negative sample does not necessarily rule out the presence of a parasitic infection. Stool STOOL SPECIMEN / Unknown 05/01/2024 11:22 AM ORGANIC CHEMISTRY PROFESSOR 05/01/2024 11:24 AM ORGANIC CHEMISTRY PROFESSOR Narrative [facility] - 05/06/2024 11:56 AM ORGANIC CHEMISTRY PROFESSOR SPLIT 04/30/2024 FROM [id number] Olivia Cross DO MICROBIOLOGY Final Result [employer] [facility] [address] [place] [address], [facility] [address] [place] [address] * STOOL PATHOGEN MULTIPLEX PCR PANEL (05/01/2024 11:22 AM ORGANIC CHEMISTRY PROFESSOR) [facility] CAMPYLOBACTER GROUP NOT DETECTED NOT DETECTED [facility] [place] SALMONELLA SPECIES NOT DETECTED NOT DETECTED [facility] SHIGELLA SPECIES NOT DETECTED NOT DETECTED [facility] [place] VIBRIO GROUP NOT DETECTED NOT DETECTED [facility] [place] YERSINIA ENTEROCOLITICA NOT DETECTED NOT DETECTED [facility] SHIGA TOXIN 1 NOT DETECTED NOT DETECTED [facility] SHIGA TOXIN 2 NOT DETECTED NOT DETECTED [facility] NOROVIRUS GI/GII NOT DETECTED NOT DETECTED [facility] ROTAVIRUS A NOT DETECTED NOT DETECTED [facility] Comment: Organisms included in the Campylobacter group include C. coli, C. jejuni, and C. sherri. Organisms included in the Shigella species include S. dysenteriae, S. boydii, S. sonnei, and S. flexneri. Organisms included in the Vibrio group include V. cholerae and V. parahaemolyticus. Stool STOOL SPECIMEN / Unknown 05/01/2024 11:22 AM ORGANIC CHEMISTRY PROFESSOR 05/01/2024 11:24 AM ORGANIC CHEMISTRY PROFESSOR Narrative [employer] [facility] - 05/02/2024 2:21 PM ORGANIC CHEMISTRY PROFESSOR SPLIT 04/30/2024 FROM [id number] Olivia Daisy Tay LORENZO MICROBIOLOGY Final Result Performing Organization Address City/[facility]/ZIP Co de Phone Number [employer] [address] [address], [facility] [address] * CLOSTRIDIUM DIFFICILE TOXIN PCR (05/01/2024 11:22 AM ORGANIC CHEMISTRY PROFESSOR) CLOSTRIDIUM DIFFICILE TOXIN/GDH W/REFL TO PCR SEE NOTE [facility] Comment: CLOSTRIDIUM DIFFICILE TOXIN/GDH W/REFL TO PCR Micro Number: [id number] Test Status: Final Specimen Source: Stool Specimen Quality: Adequate GDH Antigen: Not Detected Toxin A and B: Not Detected COMMENT: No toxigenic C. difficile detected For additional information, please refer to http://education.iCrederity/faq/ESQ947 (This link is being provided for informational/educational purposes only.) Stool STOOL SPECIMEN / Unknown 05/01/2024 11:22 AM ORGANIC CHEMISTRY PROFESSOR 05/01/2024 11:24 AM ORGANIC CHEMISTRY PROFESSOR Narrative [facility] - 05/02/2024 2:53 PM ORGANIC CHEMISTRY PROFESSOR SPLIT 04/30/2024 FROM [id number] Espinela Tay LORENZO MICROBIOLOGY Final Result [employer] [facility] [address] [place] [address], [facility] [address] [place] [address] * (ABNORMAL) CREATININE (04/30/2024 4:02 PM ORGANIC CHEMISTRY PROFESSOR) CREATININE 1.93(H) 0.60 - 1.00 mg/dL [facility] EGFR 28(L) > OR = 60 mL/min/1.73 m2 [facility] Blood BLOOD SPECIMEN / Unknown 04/30/2024 4:02 PM ORGANIC CHEMISTRY PROFESSOR 04/30/2024 4:03 PM ORGANIC CHEMISTRY PROFESSOR Narrative [facility] - 05/01/2024 5:51 AM ORGANIC CHEMISTRY PROFESSOR PATIENT UNABLE TO VOID; ADVISED TO RETURN FOR COLLECTION. [employer] CHEMISTRY Final Result Performing Organization Address City/State/[facility] Co de Phone Number [employer] [address] [address], [facility] [address] [place] [phone] * (ABNORMAL) ELECTROLYTE PANEL (04/30/2024 4:02 PM ORGANIC CHEMISTRY PROFESSOR) SODIUM 139 135 - 146 mmol/L [facility] POTASSIUM 4.3 3.5 - 5.3 mmol/L [facility] CHLORIDE 106 98 - 110 mmol/L [facility] CARBON DIOXIDE 28 20 - 32 mmol/L [facility] ELECTROLYTE BALANCE 5(L) 7 - 17 mmol/L (calc) [facility] Blood BLOOD SPECIMEN / Unknown 04/30/2024 4:02 PM ORGANIC CHEMISTRY PROFESSOR 04/30/2024 4:03 PM ORGANIC CHEMISTRY PROFESSOR Narrative [facility] - 05/01/2024 5:51 AM ORGANIC CHEMISTRY PROFESSOR PATIENT UNABLE TO VOID; ADVISED TO RETURN FOR COLLECTION. [employer] DO CHEMISTRY Final Result Performing Organization Address City/State/[facility] Co de Phone Number [employer] [facility] [address] [place] [address], [facility] [address] [place] [address] * LIPID PANEL (08/28/2023 3:10 PM CDT) [facility] CHOLESTEROL,TOTAL 124 100 - 199 mg/dL 08/28/2023 9:30 PM CDT [facility] Comment: Cholesterol, Total Reference Ranges Desirable <200 mg/dL Borderline 200-239 mg/dL High >=240 mg/dL TRIGLYCERIDES 85 <150 mg/dL 08/28/2023 9:30 PM CDT [facility] HDL CHOLESTEROL 44 >40 mg/dL 9:30 PM CDT [facility] NON-HDL CHOLESTEROL 80 <145 mg/dl 08/28/2023 9:30 PM CDT [facility] CHOL/HDL RATIO 2.82 <4.50 08/28/2023 9:30 PM CDT [facility] LDL CHOLESTEROL 63 <=130 mg/dL 08/28/2023 9:30 PM CDT [facility] VLDL CHOLESTEROL 17 <=30 mg/dL 08/28/2023 9:30 PM CDT [facility] PROVIDER ORDERED STATUS RANDOM 08/28/2023 9:30 PM CDT [facility] Blood BLOOD SPECIMEN / Unknown Venipuncture / Unknown 08/28/2023 3:10 PM CDT 08/28/2023 3:11 PM CDT us Jessee Mcadams MD CHEMISTRY Final Resu lt [facility] [address] [place] [address], [place] * XR MAMMO TERE BILAT SCREEN (08/09/2023 9:38 AM ORGANIC CHEMISTRY PROFESSOR) Anatomical Region Laterality Modality BREASTS, Breast Left, Breast Right Bilateral Mammography Impressions 08/09/2023 1:24 PM ORGANIC CHEMISTRY PROFESSOR There is no radiographic evidence for malignancy. Recommend annual mammograms. MAMMOGRAM ASSESSMENT: ACR 1 Negative PATIENTS: You will also receive a letter with your examination results in an easy to read format. If you have questions about your results, please contact your referring provider. Narrative 08/09/2023 1:24 PM ORGANIC CHEMISTRY PROFESSOR For Patients: As a result of the Century Cures Act, medical imaging exams and procedure reports are released immediately into your electronic medical record. You may view this report before your referring provider. If you have questions, please contact your health care provider. XR MAMMO TERE BILAT SCREEN [[id number]] CLINICAL HISTORY: This is an asymptomatic 68 y.o. patient. INDICATION FOR EXAM: Mammogram Screening. TECHNIQUE: CC & MLO views were obtained. This study was evaluated with the assistance of Computer-Aided Detection. Breast Tomosynthesis was used in interpretation. COMPARISON FILM: Yes 08/07/22 [employer] 07/20/21 [employer] FINDINGS: The breasts have scattered areas of fibroglandular density. There are no dominant masses, suspicious micro calcifications or areas of architectural distortion. us Jessee Mcadams MD MAMMO Final Resu lt * (ABNORMAL) XR DXA BONE DENSITY 2 SITES AXIAL (08/07/2022 1:32 PM ORGANIC CHEMISTRY PROFESSOR) Anatomical Region Laterality Modality Spine, HIPS, HIPL, HIPR Other Impressions 08/14/2022 7:58 AM ORGANIC CHEMISTRY PROFESSOR Osteoporosis. RECOMMENDATIONS: The National Osteoporosis Foundation recommends [...] to assess therapeutic efficacy. Sonia Palma PA-C [facility] [facility] 08/14/2022 Narrative 08/14/2022 7:58 AM ORGANIC CHEMISTRY PROFESSOR For Patients: Results are automatically released to your [facility] account once available, in compliance with federal regulations. This means that you may see your results before your provider has had a chance to review them. Please allow 2-3 business days for your provider to comment on the results. XR DXA Bone Mineral Density (BMD) EXAM LOCATION: [facility] [address] [facility] [address] PATIENT NAME: Galina Charles DATE OF : [...] two scanners are made by the same equipment services associate. PROCEDURE: Dual-energy x-ray absorptiometry performed with routine [...] DEXA Final Resu lt * ANTI HCV [[id number]] (05/21/2015 10:03 AM ORGANIC CHEMISTRY PROFESSOR) HEPATITIS C ANTIBODY Non-Reacti ve Non-Reacti ve 05/21/2015 5:07 PM ORGANIC CHEMISTRY PROFESSOR [facility] Blood specimen (specimen) BLOOD SPECIMEN / Unknown Venipuncture / Unknown 05/21/2015 10:03 AM ORGANIC CHEMISTRY PROFESSOR 05/21/2015 10:03 AM ORGANIC CHEMISTRY PROFESSOR Narrative [facility] - 05/21/2015 5:07 PM ORGANIC CHEMISTRY PROFESSOR Antibodies to HCV not detected; does not exclude the possibility of exposure to HCV. Jessee Mcadams MD SEND OUTS Final Resu lt [facility] [address] [place] [address], from Last 3 Months or Most Recently Relevant to Health Maintenance Insurance [facility] MR/MSHO MEDICARE PART A HB ONLY Care Teams Compensation And Hris Analyst Relationship Specialty Start Date End Date Jessee Mcadams MD [address] [place] [address] PCP - General Family Practice 06/12/13 Beatrice Jamison MD [address] [place] [address] Medical Oncologist Hematology and Oncology 12/20/23 Shoshana Solorio NP [address] [place] [address] Nurse Practitioner Hematology and Oncology 12/20/23
[2024-07-15 01:33] VITALS: BP 175/89; PULSE 74; RESP 16; TEMP 36.6; O2SAT 98
[2024-07-15 01:34] VITALS: BP 175/89; PULSE 74; RESP 16; TEMP 36.6
== END 2024-07-15 01:34 | disposition home or self-care (01) ==
PROVIDERS: Emergency Provider Family Medicine; PCP Surgery
DX: S63.502A Unspecified sprain of left wrist, initial encounter (principal); W19.XXXA Unspecified fall, initial encounter
CPT/HCPCS: 73110; 99283

== ENCOUNTER 2024-11-05 09:00 | Outpatient (RCR) | payer MEDICARE, SELFPAY | END 2025-03-05 23:59 | disposition home or self-care (01) | PROVIDERS: PCP Surgery | DX: S62.002G Unspecified fracture of navicular [scaphoid] bone of left wrist, subsequent encounter for fracture with delayed healing (principal); Z51.89 Encounter for other specified aftercare | CPT/HCPCS: 97110; 97140; 97165; 97535; X5282 ==